=== PATIENT | female | born 1980 | race Caucasian/White ===

== ENCOUNTER 2018-03-20 18:00 | Emergency (ER) | payer MEDICARE, MEDICAID ==
[2018-03-20 18:15] VITALS: BP 120/80
[2018-03-20] MEDS ORDERED: LIDOCAINE VISCOUS 2% 15 ML UDC MM STA (18:45)
[2018-03-20] MEDS ORDERED: LIDOCAINE JELLY 2% 5 ML TUBE TOP STA (18:46)
--- NOTE | 2018-03-20 18:55 | ED Physician Documentation ---
History of Present Illness - Stated complaint Stated Complaint: NOSE PX - Chief complaint Chief Complaint: Heent - History obtained from History obtained from: Patient - History of Present Illness Timing: How many weeks ago (1) Pain level max: 4 Pain level now: 4 Improved by: nothing Worsened by: palpation - Additonal information Additional information: States her nose ring Is stuck on the right side of her nose. 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 - Present Medications Home Medications: Ambulatory Orders Medication Instructions Recorded Confirmed Sertraline HCl 100 mg PO DAILY 03/20/18 03/20/18 - Allergies Allergies/Adverse Reactions: Allergies Allergy/AdvReac Type Severity Reaction Status Date / Time No Known Drug Allergies Allergy Verified 03/20/18 18:15 - Social History Does the pt smoke?: No Smoking Status: Never smoker Does the pt drink ETOH?: No Does the pt have substance abuse?: No - Immunizations Immunizations are current?: Yes PD ED PE NORMAL - Vitals Vital signs reviewed: Yes - General General: Alert and oriented X 3, No acute distress - HEENT HEENT: Other (nose ring in R side of nose. no redness or swelling.) - Derm Derm: Warm and dry - Neuro Neuro: Alert and oriented X 3 Results - Vitals Vitals: Vital Signs - 24 hr 03/20/18 18:12 Temperature 36.4 C L Heart Rate 79 Respiratory 18 Rate Blood Pressure 120/80 O2 Saturation 97 Oxygen O2 Source Room air PD MEDICAL DECISION MAKING - ED course Complexity details: considered differential, d/w patient ED course: Patient is a 37-year-old female who presents to the emergency department with a nose ring stuck in the right nare. Topical lidocaine was applied and then forceps were used to pry the nose ring apart and it was removed. Patient tolerated well. No evidence of infection. Patient counseled regarding signs and symptoms for which I believe and urgent re-evaluation would be necessary. Patient with good understanding of and agreement to plan and is comfortable going home at this time This document was made in part using voice recognition software. While efforts are made to proofread this document, sound alike and grammatical errors may occur. - Sepsis Event Vital Signs: Vital Signs - 24 hr 03/20/18 18:12 Temperature 36.4 C L Heart Rate 79 Respiratory 18 Rate Blood Pressure 120/80 O2 Saturation 97 Oxygen O2 Source Room air Departure - Departure Disposition: 01 Home, Self Care Clinical Impression: Soft tissues foreign body Condition: Good Instructions: ED Foreign Body Soft Tissue Removed Follow-Up: your,doctor as needed [Other] Comments: Return if you worsen. Discharge Date/Time: 03/20/18 19:19
== END 2018-03-20 19:19 | disposition home or self-care (01) ==
LOC: ED 18:00
DX: S00.35XA Superficial foreign body of nose, initial encounter (principal); X58.XXXA Exposure to other specified factors, initial encounter
CPT/HCPCS: 99282; J3490